=== PATIENT | female | born 1955 | race Caucasian/White ===

== ENCOUNTER 2021-11-07 09:27 | Outpatient (CLI) | payer OTHER, SELFPAY ==
--- NOTE | 2021-11-07 09:41 | MM_ITS ---
WS: [id number] Bilateral screening 3D tomosynthesis digital mammogram, 11/07/2021 Clinical Data: SCREENING Comparison: 02/21/2009. Findings: The breast parenchymal pattern shows heterogeneous density No spiculated masses or clustered calcific ations are seen. There are no secondary signs of carcinoma. There is a mole marker on the left breast . MM/[place] [id number] Impression: 1. Negative bilateral mammogram unchanged. 2. Recommend annual screening mammograms. BIRADS: 1-Negative FOLLOW UP: 1 Year Follow-up The CAD fitting room checker was used.
== END 2021-11-07 09:28 | disposition home or self-care (01) ==
LOC: RAD 09:37
PROVIDERS: PCP Nurse Practitioner Family; Visit Provider Nurse Practitioner Family
DX: Z12.31 Encounter for screening mammogram for malignant neoplasm of breast (principal)
CPT/HCPCS: 77063; 77067

== ENCOUNTER 2022-07-15 12:01 | Emergency (ER) | payer SELFPAY ==
[2022-07-15 12:08] VITALS: BP 145/79; PULSE 82; RESP 18; TEMP 36.8; O2SAT 97
--- NOTE | 2022-07-15 13:05 | W.ED.DIZZY ---
HPI - Dizziness General: Chief Complaint: Dizziness Stated Complaint: AMS/weakness Time Seen by Provider: 07/15/22 12:51 History of Present Illness: HPI Narrative: This 66-year-old female with a past history of hypertension presents to the ER for evaluation of sudden onset dizziness that started while she was sitting down watching television. Patient notes that she turned her head to one side and had this sudden wave of dizziness that made it hard for her to get out of her chair. Dizziness lasted for about 2 to 3 minutes but afterwards, she felt weak and weird. She called her who drove her to the ER. Patient notes that on their way to the hospital, she felt better and was wondering if they should turn back and go home. Here in the ER, she is at her baseline. She denies any pain. Associated symptoms: Reports headache(s) (Pain at the back of the head) Review of Systems General: Reports: 10 or more systems reviewed and unremarkable except in HPI and below Neuro: Reports: headache(s) (Pain at the back of the head) and dizziness Physical Exam Const: COMMON NORMALS: no acute distress, patient oriented x3, no limitations and alert HENMT: COMMON NORMALS: normocephalic HEAD & SCALP: normocephalic Neck/C-Spine: COMMON NORMALS: full ROM and supple Chest: COMMONS NORMALS: normal inspection of the chest Resp: COMMON NORMALS: normal respiratory effort, No retractions, No use of accessory muscles and clear to auscultation bilaterally AUSCULTATION: clear to auscultation bilaterally Cardio: COMMON NORMALS: regular rate, regular rhythm and No murmurs present (Cardio) RATE: regular rate RHYTHM: regular rhythm GI: COMMON NORMALS: Normal to inspection, nondistended, normoactive bowel sounds present and non-tender : COMMON NORMALS: Yes no CVA tenderness BLADDER/KIDNEY EXAM: Yes no CVA tenderness Back/Pelvis: COMMON NORMALS: no CVA tenderness and no thoracic nor lumbar tenderness Extremity: GENERAL: Yes normal exam except as noted Neuro: COMMON NORMALS: patient oriented x3 and no focal motor deficits SENSORIUM/ORIENTATION: Yes alert Psych: COMMON NORMALS: mental status grossly normal and cooperative Course Vital Signs: Vital signs: Vital Signs Temperature 98.2 F 07/15/22 12:08 Pulse Rate 80 07/15/22 14:55 Respiratory Rate 18 07/15/22 12:08 Blood Pressure 178/84 07/15/22 14:55 Pulse Oximetry 98 07/15/22 14:55 Oxygen Delivery Me thod 07/15/22 14:55 MDM - Dizziness Medical Decision Making Medical decision making: Patient presents to the ER with short-lived dizziness that she experienced while sitting down and watching television. Moving her neck to one side or the other was what triggered the dizziness. Since then, patient has been at her baseline. Clinical exam is unremarkable and CT brain is negative for any acute intracranial process. Completed blood tests are unremarkable. She will be treated symptomatically. Reasons to return were discussed. Lab Data 07/15/22 14:25 07/15/22 14:[address] 07/15/22 13:15 IMPRESSION: NO ACUTE INTRACRANIAL CHANGE Laboratory Results WBC 10.9 10^3/uL (4.0-10.0) H 07/15/22 14:25 RBC 4.73 10^6/uL (4.1-5.3) 07/15/22 14:25 Hgb 14.7 g/dL (11.5-15.3) 07/15/22 14:25 Hct 43.1 % (37.0-47.0) 07/15/22 14:25 MCV 91.1 fl (81-99) 07/15/22 14:25 MCH 31.1 pg (28.0-34.0) 07/15/22 14:25 MCHC 34.1 g/dL (30.0-36.0) 07/15/22 14:25 RDW 12.1 % (12.1-15.1) 07/15/22 14:25 Plt Count 310 10^3/cmm (130-400) 07/15/22 14:25 MPV 8.6 fL (7.4-10.4) 07/15/22 14:25 Neut % (Auto) 81.6 % 07/15/22 14:25 Lymph % (Auto) 13.4 % 07/15/22 14:25 [place] % (Auto) 3.8 % 07/15/22 14:25 Eos % (Auto) 0.3 % 07/15/22 14:25 Baso % (Auto) 0.5 % 07/15/22 14:25 Neut # (Auto) 8.91 10^3/uL (1.8-7.7) H 07/15/22 14:25 Lymph # (Auto) 1.5 10^3/uL (0.8-4.8) 07/15/22 14:25 [place] # (Auto) 0.4 10^3/uL (0.2-0.9) 07/15/22 14:25 Eos # (Auto) 0.0 10^3/uL (0.0-0.8) 07/15/22 14:25 Baso # (Auto) 0.1 10^3/uL (0.0-0.1) 07/15/22 14:25 Nucleated RBC % (auto) 0 % 07/15/22 14:25 Nucleated RBCs # 0.0 /100WBC 07/15/22 14:25 Sodium 140 mmol/L (136-145) 07/15/22 14:25 Potassium 4.2 mmol/L (3.5-5.1) 07/15/22 14:25 Chloride 102 mmol/L (98-107) 07/15/22 14:25 Carbon Dioxide 27 mmol/L (22-29) 07/15/22 14:25 Anion Gap 15.2 (5-19) 07/15/22 14:25 BUN 19 mg/dL (8-23) 07/15/22 14:25 Creatinine 0.8 mg/dL (0.5-0.9) 07/15/22 14:25 GFR Calculation 72.0 mL/min (90-130) L 07/15/22 14:25 Glucose 133 mg/dL (65-115) H 07/15/22 14:25 Calculated Osmolality 294 mOsm/kg (285-295) 07/15/22 14:25 Calcium 10.9 mg/dL (8.5-10.5) H 07/15/22 14:25 Total Bilirubin 0.3 mg/dL (0.15-1.2) 07/15/22 14:25 AST 21 U/L (0-32) 07/15/22 14:25 ALT 19 U/L (0-33) 07/15/22 14:25 Alkaline Phosphatase 69 U/L (35-105) 07/15/22 14:25 Total Protein 8.4 g/dL (6.6-8.7) 07/15/22 14:25 Albumin 4.8 g/dL (3.5-5.2) 07/15/22 14:25 Globulin 3.6 g/dL (1.3-4.6) 07/15/22 14:25 Discharge Plan Discharge Patient Disposition: Home Condition: Stable Prescriptions: New meclizine 12.5 mg tablet 12.5 mg PO TID PRN (Reason: dizziness) Qty: 20 0RF No Action lisinopril 20 mg tablet 20 mg PO DAILY Discharge Orders: Discharge ED (Routine); Ordered 07/15/22 Ordered By: Jd Bauer Referrals: Janie Cruz, CARDIOLOGY CONSULTANT [Primary Care Provider] - Discharge Diet: Usual diet Discharge Activity: Resume usual activity Patient Instructions: Opioid Safety, Pain Management Activity Restrictions/Additional Instructions: Rest. Maintain adequate fluid intake. Take meclizine as needed for dizziness. Follow-up with your primary care physician within a week for reevaluation. Return with new or worsening symptoms. Coding Level of Care Code ED Bottoming Machine Operator for Memo aGn
--- NOTE | 2022-07-15 13:15 | CT_ITS ---
WS: [id number] EXAMINATION: CT head wo con* [id number] REASON FOR EXAM: vertigo COMPARISON: 03/31/2018 ORDER DATE: 07/15/2022 1:29 PM TOTAL EXAM DLP: 1134.[address] scans at [facility] use at least one of these dose optimization techniques: automated ex posure control; mA and/or kV adjustment per patient size (includes targeted exams where dose is match ed to clinical indication); or iterative reconstruction. TECHNIQUE: AXIAL IMAGING WITH 2-D REFORMATS WITHOUT CONTRAST FINDINGS: Extra axial spaces: Normal in size and morphology for the patient's age.. Hemorrhage: No evidence of subarachnoid hemorrhage. Ventricular system: Normal in size and morphology for the patient's age.. Basal cisterns: The basilar cisterns are patent.. Cerebral parenchyma: Jin-white matter differentiation is maintained..Focus of decreased attenuation right basal ganglia, likely a prominent perivascular space unchanged from previous. Midline shift: No midline shift or mass effect. . Cerebellum: Normal. Brainstem: Normal. ORBITS/FACIAL BONES/OTHER: Calvarium: Intact. Vascular system: Normal. Visualized Paranasal sinuses: Clear with a small rightward nasal septal spur in the mid septum. Visualized Orbits and facial bones: Normal. Visualized upper cervical spine: Normal. Sella and skull base: Grossly intact. CT/CT head wo con* [id number] IMPRESSION: NO ACUTE INTRACRANIAL CHANGE
--- NOTE | 2022-07-15 13:16 | ECG_ITS ---
[facility] Test Date: 2022-07-15 Pat Name: Radha Barnes Department: Room: Gender: Female Commercial Sales Manager: : [id number] Requested By: Jd De León Order Number: [id number] Sujata MD: Dejuan Morrow M.D. Measurements Intervals [place] Rate: 77 P: 60 SC: 164 QRS: 2 QRSD: 91 T: 42 QT: 351 QTc: 397 Interpretive Statements SINUS RHYTHM LOW QRS VOLTAGE IN PRECORDIAL LEADS [QRS DEFLECTION < 1.0 mV IN CHEST LEADS] Compared to ECG 03/31/2018 14:51:50 No significant changes Electronically Signed On 07-15-2022 23:09:20 CDT by Dejuan Morrow M.D. [id number]
[2022-07-15 14:00] VITALS: BP 160/73; PULSE 80; O2SAT 99
[2022-07-15] MEDS: sodium chloride 0.9% 1,000 ML 999 ML IV (14:31)
[2022-07-15 14:35] LABS: Basophils # 0.1 10^3/uL (0.0-0.1); Basophils % 0.5 %; Eosinophils % 0.3 %; Hematocrit 43.1 % (37.0-47.0); Hemoglobin 14.7 g/dL (11.5-15.3); Lymphocytes # 1.5 10^3/uL (0.8-4.8); Lymphocytes % 13.4 %; Mean Corpuscular HGB Conc 34.1 g/dL (30.0-36.0); Mean Corpuscular Hemoglobin 31.1 pg (28.0-34.0); Mean Corpuscular Volume 91.1 fl (81-99); Mean Platelet Volume 8.6 fL (7.4-10.4); Monocytes # 0.4 10^3/uL (0.2-0.9); Monocytes % 3.8 %; Neutrophils # 8.91 10^3/uL (1.8-7.7); Neutrophils % 81.6 %; Nucleated Red Blood Cells % 0 %; Platelet Count 310 10^3/cmm (130-400); Red Blood Count 4.73 10^6/uL (4.1-5.3); Red Cell Distribution Width 12.1 % (12.1-15.1); White Blood Count 10.9 10^3/uL (4.0-10.0)
[2022-07-15 14:53] LABS: Alanine Aminotransferase 19 U/L (0-33); Albumin Level 4.8 g/dL (3.5-5.2); Alkaline Phosphatase 69 U/L (35-105); Anion Gap 15.2 (5-19); Aspartate Amino Transferase 21 U/L (0-32); Blood Urea Nitrogen 19 mg/dL (8-23); Calcium 10.9 mg/dL (8.5-10.5); Carbon Dioxide 27 mmol/L (22-29); Chloride 102 mmol/L (98-107); Globulin 3.6 g/dL (1.3-4.6); Glucose 133 mg/dL (65-115); Osmolality Calculated 294 mOsm/kg (285-295); Potassium 4.2 mmol/L (3.5-5.1); Sodium 140 mmol/L (136-145); Total Bilirubin 0.3 mg/dL (0.15-1.2); Total Protein 8.4 g/dL (6.6-8.7)
[2022-07-15 14:55] VITALS: BP 178/84; PULSE 80; O2SAT 98
[2022-07-15 15:36] VITALS: BP 163/73; PULSE 75; O2SAT 97
== END 2022-07-15 15:37 | disposition home or self-care (01) ==
PROVIDERS: Emergency Provider Family Medicine; PCP Nurse Practitioner Family
DX: R42 Dizziness and giddiness (principal)
CPT/HCPCS: 70450; 80053; 85025; 93005; 96360; 99285; J7030